=== PATIENT | female | born 1945 | race Caucasian/White ===

== ENCOUNTER 2016-03-29 05:34 | Observation (INO) | payer MEDICARE, OTHER ==
[2016-03-29] VITALS (16 sets, daily range): BP systolic 105–167; BP diastolic 40–70; PULSE 51–76; RESP 16–22; TEMP 97.5–98.4; O2SAT 93–97
[~2016-03-29] VITALS: Ht 172.7 cm; Wt 100.0 kg
[2016-03-29] MEDS ORDERED: SODIUM CHLORIDE 0.9% FLUSH 5 ML FLUSH IVF PRN (06:00)
[2016-03-29] MEDS ORDERED: ONDANSETRON HCL 4 MG/2 ML VIAL IV PUSH ONE ×3 (06:00→09:30)
[2016-03-29] MEDS ORDERED: ASPIRIN 81 MG CHEW TAB PO ONE (06:00)
[2016-03-29] MEDS: NITROGLYCERIN 0.4 MG SL 25 TABS/BTL SL SCH ×3 (06:02→06:15)
--- NOTE | 2016-03-29 06:03 | PD ---
HPI Chief Complaint: chest pain Time Seen by Provider: 05:50 Travel History International Travel<30 days: No Contact w/Intl Traveler<30days: No Traveled to known affect area: No History of Present Illness HPI 70 year-old female presents to the emergency department by private transportation in the care of her spouse for evaluation of chest pain and upper abdominal pain. Patient reports pain at home 8/10 in intensity. Patient reports pain awakened her from sleep at 1 AM. Patient ate dinner around 8 PM and felt well. Spouse has no similar symptoms. Patient has had nausea with vomiting. No hematemesis or coffee-ground emesis. No sweats or shortness of breath. No referred neck jaw back shoulder arm pain. Patient denies history of peptic ulcer disease gastritis or gallbladder disease. No prior history of pancreatitis. Patient denies history of cardiac disease. Patient does have history of hypertension and states that 10 years ago she had she believes a normal cardiac catheterization. Patient denies history of dyslipidemia or diabetes and is not a smoker. Patient states she felt like she was having indigestion and took Pepto-Bismol without relief. Patient has had normal bowel movement and denies diarrhea constipation and has had no previous abdominal surgeries. Due to persistence of symptoms presents now for further evaluation. PFSH Past Medical History Narrative Medical Hypertension, cardiac catheterization, no tobacco use, nursing notes reviewed Social History Tobacco Use: No Allergies-Medications (Allergen,Severity, Reaction): Coded Allergies: Codeine (Verified Allergy, Severe, 06/03/05) Penicillin (Verified Allergy, Severe, 06/03/05) Keflex (Verified Allergy, Intermediate, rash, 03/29/16) Reported Meds & Prescriptions Reported Meds & Active Scripts Active Reported Aspirin 81 Mg Chew 81 Mg CHEW ONCE Fiber (Calcium Polycarbophil) 625 Mg Tab 625 Mg PO PRN Multiple Vitamin 1 Tab 1 Tab PO DAILY Oscal 500/200 D-3 (Calcium Carbonate-Vitamin D) 500-200 Mg-Unit Tab 1 Tab PO BID Clobetasol Emollient Topical 0.05% Cream 1 Applic TOPICAL BID Econazole Topical (Econazole Nitrate) 1% Cream 1 Applic TOPICAL DAILY Levothyroxine (Levothyroxine Sodium) 125 Mcg Tab 125 Mcg PO DAILY Toprol XL (Metoprolol Succinate) 25 Mg Tab 25 Mg PO BID Zetia (Ezetimibe) 10 Mg Tab 10 Mg PO DAILY Losartan (Losartan Potassium) 50 Mg Tab 50 Mg PO DAILY Review of Systems Except as stated in HPI: all other systems reviewed are Neg General / Constitutional: No: Fever, Chills HENT: No: Congestion Cardiovascular: Positive: Chest Pain or Discomfort, No: Palpitations, Diaphoresis Respiratory: No: Shortness of Breath Gastrointestinal: Positive: Nausea, Vomiting, Abdominal Pain, No: Diarrhea Genitourinary: No: Flank Pain Musculoskeletal: No: Myalgias, Arthralgias Skin: No Rash Neurologic: No: Weakness, Dizziness, Syncope Psychiatric: No: Anxiety Hematologic/Lymphatic: No: Lymph Node Enlargement Physical Exam Narrative GENERAL: Well-developed well-nourished female in no acute distress no respiratory distress SKIN: Warm and dry. HEAD: Normocephalic. EYES: No scleral icterus. No injection or drainage. NECK: Supple, trachea midline. No JVD or lymphadenopathy. CARDIOVASCULAR: Regular rate and rhythm without murmurs, gallops, or rubs. RESPIRATORY: Breath sounds equal bilaterally. No accessory muscle use. GASTROINTESTINAL: Abdomen soft, mild reproducible epigastric and right upper quadrant tenderness to palpation without guarding or rebound nondistended. MUSCULOSKELETAL: No cyanosis, or edema. Bilateral radial and dorsalis pedis pulses 2+ to palpation BACK: Nontender without obvious deformity. No CVA tenderness. Data Data Last Documented VS Vital Signs Date Time Temp Pulse Resp B/P Pulse Ox O2 Delivery O2 Flow Rate FiO2 03/29/16 09:15 60 16 117/52 95 Room Air 03/29/16 07:09 97.8 Orders Electrocardiogram (03/29/16 05:50) Basic Metabolic Panel (Bmp) (03/29/16 05:50) Ckmb (Isoenzyme) Profile (03/29/16 05:50) Complete Blood Count With Diff (03/29/16 05:50) Magnesium (Mg) (03/29/16 05:50) Prothrombin Time / Inr (Pt) (03/29/16 05:50) Act Partial Throm Time (Ptt) (03/29/16 05:50) Troponin I (03/29/16 05:50) Chest, Single Ap (03/29/16 05:50) Ecg Monitoring (03/29/16 05:50) Bilateral Bp Monitoring (03/29/16 05:50) Iv Access Insert/Monitor (03/29/16 05:50) Oximetry (03/29/16 05:50) Oxygen Administration (03/29/16 05:50) Aspirin Chew (Aspirin Chew) (03/29/16 06:00) Sodium Chloride 0.9% Flush (Ns Flush) (03/29/16 06:00) Nitroglycerin Sl (Nitrostat Sl) (03/29/16 06:00) Ondansetron Inj (Zofran Inj) (03/29/16 06:00) Sodium Chlor 0.9% 1000 Ml Inj (Ns 1000 M (03/29/16 06:15) Sodium Chlorid 0.9% 500 Ml Inj (Ns 500 M (03/29/16 06:30) Hydromorphone Pf Inj (Dilaudid Pf Inj) (03/29/16 06:30) CKMB (03/29/16 06:04) CKMB% (03/29/16 06:04) Hepatic Functional Panel (03/29/16 06:04) Ondansetron Inj (Zofran Inj) (03/29/16 06:45) Pantoprazole Inj (Protonix Inj) (03/29/16 06:45) Cta Thor Abd Aorta W Iv C W3d (03/29/16 06:42) Iohexol 350 Inj (Omnipaque 350 Inj) (03/29/16 08:05) Admit Order (Ed Use Only) (03/29/16 09:20) Ondansetron Inj (Zofran Inj) (03/29/16 09:30) Hydromorphone Pf Inj (Dilaudid Pf Inj) (03/29/16 09:30) Place In Observation (03/29/16 ) Vital Signs (Adult) Q4H (03/29/16 09:19) Activity Oob With Assistance (03/29/16 09:19) ^ 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 / 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 .CONTINUOUS (03/29/16 09:19) Intake + Output GIN.QSHIFT (03/29/16 09:19) Diet Clear Liquid (03/29/16 Breakfast) Acetaminophen (Tylenol) (03/29/16 09:30) Ondansetron Inj (Zofran Inj) (03/29/16 09:30) Magnesium Hydroxide Liq (Milk Of Magnesi (03/29/16 09:30) Basic Metabolic Panel (Bmp) (03/30/16 06:00) Complete Blood Count With Diff (03/30/16 06:00) Creatine Kinase (Cpk) (03/29/16 12:00) Creatine Kinase (Cpk) (03/29/16 18:00) Troponin I (03/29/16 12:00) Troponin I (03/29/16 18:00) Scd Bilateral/Knee High GIN.BID (03/29/16 09:19) Hernandez Bilateral/Knee High GIN.QSHIFT (03/29/16 09:19) Naloxone Inj (Narcan Inj) (03/29/16 09:30) Labs Laboratory Tests Test 03/29/16 03/29/16 06:04 06:05 White Blood Count 9.8 TH/MM3 Red Blood Count 5.32 MIL/MM3 Hemoglobin 14.9 GM/DL Hematocrit 44.5 % Mean Corpuscular Volume 83.8 FL Mean Corpuscular Hemoglobin 28.1 PG Mean Corpuscular Hemoglobin 33.5 % Concent Red Cell Distribution Width 12.3 % Platelet Count 174 TH/MM3 Mean Platelet Volume 11.0 FL Neutrophils (%) (Auto) 83.1 % Lymphocytes (%) (Auto) 11.6 % Monocytes (%) (Auto) 2.9 % Eosinophils (%) (Auto) 1.7 % Basophils (%) (Auto) 0.7 % Neutrophils # (Auto) 8.1 TH/MM3 Lymphocytes # (Auto) 1.1 TH/MM3 Monocytes # (Auto) 0.3 TH/MM3 Eosinophils # (Auto) 0.2 TH/MM3 Basophils # (Auto) 0.1 TH/MM3 CBC Comment AUTO DIFF Differential Comment AUTO DIFF CONFIRMED Platelet Estimate NORMAL Platelet Morphology Comment NORMAL Red Cell Morphology Comment NORMAL Prothrombin Time 10.5 SEC Prothromb Time International 1.0 RATIO Ratio Activated Partial 25.9 SEC Thromboplast Time Sodium Level 144 MEQ/L Potassium Level 3.8 MEQ/L Chloride Level 108 MEQ/L Carbon Dioxide Level 27.0 MEQ/L Anion Gap 9 MEQ/L Blood Urea Nitrogen 24 MG/DL Creatinine 0.88 MG/DL Estimat Glomerular Filtration 64 ML/MIN Rate Random Glucose 131 MG/DL Calcium Level 8.9 MG/DL Magnesium Level 2.2 MG/DL Total Bilirubin 0.3 MG/DL Direct Bilirubin 0.1 MG/DL Indirect Bilirubin 0.2 MG/DL Aspartate Amino Transf 17 U/L (AST/SGOT) Alanine Aminotransferase 27 U/L (ALT/SGPT) Alkaline Phosphatase 82 U/L Total Creatine Kinase 175 U/L Creatine Kinase MB 1.6 NG/ML Troponin I LESS THAN 0.02 NG/ML Total Protein 6.9 GM/DL Albumin 3.5 GM/DL Lipase 243 U/L MDM Medical Decision Making Medical Screen Exam Complete: Yes Emergency Medical Condition: Yes Medical Record Reviewed: Yes Interpretation(s) EKG sinus bradycardia rate [address] elevation or injury pattern change noted no reciprocal changes no ectopy Differential Diagnosis Chest pain, ACS, myocardial infarction, aortic dissection, peptic ulcer disease , pancreatitis, acute cholecystitis, choledocholithiasis, bowel obstruction, gastroenteritis Narrative Course Patient placed on quality assurance monitor IV access obtained specimens collected and sent for resulting EKG performed which shows sinus bradycardia but no acute ST elevation or injury pattern change patient administered Zofran 4 mg IV along with maintenance fluids normal saline 125 cc per hour aspirin 162 mg by mouth and sublingual nitroglycerin At 6:30 AM after 2 sublingual nitroglycerin pain remains 7/10 in intensity without any change or improvement of symptoms and blood pressure systolic has decreased to 105 mmHg; nausea and vomiting have resolved after Zofran 4 mg IV patient complain use complain of midline epigastric pain care signed over to oncoming ED MD Dr Obando aware CTA pending; may need further GI /GB evaluation Valeria Grimm MD Mar 29, 2016 06:03
[2016-03-29 06:09] LABS: AUTOMATED NEUTROPHIL # 8.1 TH/MM3 (1.8-7.7); BASOPHIL # 0.1 TH/MM3 (0-0.2); BASOPHIL % 0.7 % (0.0-2.0); EOSINOPHIL # 0.2 TH/MM3 (0-0.4); EOSINOPHIL % 1.7 % (0.0-4.0); HEMATOCRIT 44.5 % (35.0-46.0); LYMPH % 11.6 % (9.0-44.0); LYMPHOCYTE # 1.1 TH/MM3 (1.0-4.8); MEAN CELL VOLUME 83.8 FL (80.0-100.0); MEAN CORPUSCULAR HEMOGLOBIN 28.1 PG (27.0-34.0); MEAN CORPUSCULAR HGB CONC 33.5 % (32.0-36.0); MONO % 2.9 % (0.0-8.0); NEUT % 83.1 % (16.0-70.0); PLATELET COUNT 174 TH/MM3 (150-450); RED BLOOD COUNT 5.32 MIL/MM3 (4.00-5.30); RED CELL DISTRIBUTION WIDTH 12.3 % (11.6-17.2); WHITE BLOOD COUNT 9.8 TH/MM3 (4.0-11.0)
[2016-03-29 06:10] LABS: HEMO FLAGS AUTO DIFF
--- NOTE | 2016-03-29 06:19 | RADHPO ---
EXAM DATE/TIME: 03/29/2016 06:06 [facility] COMPARISON: No previous studies available for comparison. INDICATIONS : Chest pain. MEDICAL HISTORY : None. SURGICAL HISTORY : None. ENCOUNTER: Initial ACUITY: 1 day PAIN SCORE: 7/10 LOCATION: Bilateral chest center FINDINGS: A single view of the chest demonstrates the lungs to be symmetrically aerated without evidence of mas s, infiltrate or effusion. The cardiomediastinal contours are unremarkable. Osseous structures are intact. CONCLUSION: Normal examination. Charles Jacob MD on March 29, 2016 at 6:17 Board Certified Radiologist. This report was verified electronically.
[2016-03-29 06:20] LABS: CHLORIDE 108 MEQ/L (98-107); POTASSIUM 3.8 MEQ/L (3.5-5.1); SODIUM (NA) 144 MEQ/L (136-145)
[2016-03-29 06:23] LABS: ANION GAP 9 MEQ/L (5-15); BLOOD UREA NITROGEN 24 MG/DL (7-18); MAGNESIUM 2.2 MG/DL (1.5-2.5); PLATELET ESTIMATE SMEAR NORMAL (NORMAL); PLATELET MORPHOLOGY NORMAL (NORMAL); SCAN/DIFF AUTO DIFF CONFIRMED
[2016-03-29] MEDS: SODIUM CHLOR 0.9% 1000 ML INJ 1,000 ML IV SCH ×3 (06:23→21:21)
[2016-03-29 06:26] LABS: APTT (PATIENT) 25.9 SEC (24.3-30.1); PROTHROMBIN TIME - PATIENT 10.5 SEC (9.8-11.6)
[2016-03-29 06:27] LABS: GLOMERULAR FILTRATION RATE 64 ML/MIN (>89)
[2016-03-29 06:30] LABS: CREATINE KINASE 175 U/L (26-192)
[2016-03-29] MEDS ORDERED: HYDROmorphone HCL PF 1 MG/ML VIAL IV PUSH ONE ×2 (06:30→09:30)
[2016-03-29] MEDS ORDERED: SODIUM CHLORID 0.9% 500 ML INJ 500 ML IV ONE (06:30)
[2016-03-29 06:42] LABS: CKMB 1.6 NG/ML (0.5-3.6)
[2016-03-29] MEDS ORDERED: PANTOPRAZOLE SODIUM 40 MG VIAL IV PUSH ONE (06:45)
[2016-03-29] MEDS ORDERED: ZETI10TA5 PO (06:50)
[2016-03-29] MEDS ORDERED: ASPI81CH CHEW (06:50)
[2016-03-29] MEDS ORDERED: FIBE625T10 PO (06:50)
[2016-03-29] MEDS ORDERED: ECON0.052 TOPICAL (06:50)
[2016-03-29] MEDS ORDERED: TOPR25TA PO (06:50)
[2016-03-29] MEDS ORDERED: OSCA200T PO (06:50)
[2016-03-29] MEDS ORDERED: LOSA50TA PO (06:50)
[2016-03-29] MEDS ORDERED: MULTTAB67 PO (06:50)
[2016-03-29] MEDS ORDERED: LEVO125T4 PO (06:50)
[2016-03-29] MEDS ORDERED: CLOB0.0571 TOPICAL (06:50)
[2016-03-29 06:52] LABS: ALT (GPT) 27 U/L (10-53); AST (GOT) 17 U/L (15-37)
[2016-03-29 06:54] LABS: INDIRECT BILIRUBIN 0.2 MG/DL (0.0-0.8); TOTAL BILIRUBIN ADULT 0.3 MG/DL (0.2-1.0)
[2016-03-29 06:55] LABS: ALKALINE PHOSPHATASE 82 U/L (45-117)
--- NOTE | 2016-03-29 07:39 | PD ---
Physical Exam Date Seen by Provider: Mar 29, 2016 Data Data Last Documented VS Vital Signs Date Time Temp Pulse Resp B/P Pulse Ox O2 Delivery O2 Flow Rate FiO2 03/29/16 08:23 58 16 134/65 95 Room Air 03/29/16 07:09 97.8 Orders Electrocardiogram (03/29/16 05:50) Basic Metabolic Panel (Bmp) (03/29/16 05:50) Ckmb (Isoenzyme) Profile (03/29/16 05:50) Complete Blood Count With Diff (03/29/16 05:50) Magnesium (Mg) (03/29/16 05:50) Prothrombin Time / Inr (Pt) (03/29/16 05:50) Act Partial Throm Time (Ptt) (03/29/16 05:50) Troponin I (03/29/16 05:50) Chest, Single Ap (03/29/16 05:50) Ecg Monitoring (03/29/16 05:50) Bilateral Bp Monitoring (03/29/16 05:50) Iv Access Insert/Monitor (03/29/16 05:50) Oximetry (03/29/16 05:50) Oxygen Administration (03/29/16 05:50) Aspirin Chew (Aspirin Chew) (03/29/16 06:00) Sodium Chloride 0.9% Flush (Ns Flush) (03/29/16 06:00) Nitroglycerin Sl (Nitrostat Sl) (03/29/16 06:00) Ondansetron Inj (Zofran Inj) (03/29/16 06:00) Sodium Chlor 0.9% 1000 Ml Inj (Ns 1000 M (03/29/16 06:15) Sodium Chlorid 0.9% 500 Ml Inj (Ns 500 M (03/29/16 06:30) Hydromorphone Pf Inj (Dilaudid Pf Inj) (03/29/16 06:30) CKMB (03/29/16 06:04) CKMB% (03/29/16 06:04) Hepatic Functional Panel (03/29/16 06:04) Ondansetron Inj (Zofran Inj) (03/29/16 06:45) Pantoprazole Inj (Protonix Inj) (03/29/16 06:45) Cta Thor Abd Aorta W Iv C W3d (03/29/16 06:42) Iohexol 350 Inj (Omnipaque 350 Inj) (03/29/16 08:05) Labs Laboratory Tests Test 03/29/16 06:04 White Blood Count 9.8 TH/MM3 Red Blood Count 5.32 MIL/MM3 Hemoglobin 14.9 GM/DL Hematocrit 44.5 % Mean Corpuscular Volume 83.8 FL Mean Corpuscular Hemoglobin 28.1 PG Mean Corpuscular Hemoglobin 33.5 % Concent Red Cell Distribution Width 12.3 % Platelet Count 174 TH/MM3 Mean Platelet Volume 11.0 FL Neutrophils (%) (Auto) 83.1 % Lymphocytes (%) (Auto) 11.6 % Monocytes (%) (Auto) 2.9 % Eosinophils (%) (Auto) 1.7 % Basophils (%) (Auto) 0.7 % Neutrophils # (Auto) 8.1 TH/MM3 Lymphocytes # (Auto) 1.1 TH/MM3 Monocytes # (Auto) 0.3 TH/MM3 Eosinophils # (Auto) 0.2 TH/MM3 Basophils # (Auto) 0.1 TH/MM3 CBC Comment AUTO DIFF Differential Comment AUTO DIFF CONFIRMED Platelet Estimate NORMAL Platelet Morphology Comment NORMAL Red Cell Morphology Comment NORMAL Prothrombin Time 10.5 SEC Prothromb Time International 1.0 RATIO Ratio Activated Partial 25.9 SEC Thromboplast Time Sodium Level 144 MEQ/L Potassium Level 3.8 MEQ/L Chloride Level 108 MEQ/L Carbon Dioxide Level 27.0 MEQ/L Anion Gap 9 MEQ/L Blood Urea Nitrogen 24 MG/DL Creatinine 0.88 MG/DL Estimat Glomerular Filtration 64 ML/MIN Rate Random Glucose 131 MG/DL Calcium Level 8.9 MG/DL Magnesium Level 2.2 MG/DL Total Bilirubin 0.3 MG/DL Direct Bilirubin 0.1 MG/DL Indirect Bilirubin 0.2 MG/DL Aspartate Amino Transf 17 U/L (AST/SGOT) Alanine Aminotransferase 27 U/L (ALT/SGPT) Alkaline Phosphatase 82 U/L Total Creatine Kinase 175 U/L Creatine Kinase MB 1.6 NG/ML Troponin I LESS THAN 0.02 NG/ML Total Protein 6.9 GM/DL Albumin 3.5 GM/DL [facility] Medical Record Reviewed: Yes Supervised Visit with JESSICA: No Interpretation(s) Vital Signs Date Time Temp Pulse Resp B/P Pulse Ox O2 Delivery O2 Flow Rate FiO2 03/29/16 07:11 65 18 95 Room Air 03/29/16 07:09 97.8 65 18 136/66 95 Room Air 03/29/16 06:39 54 22 119/54 93 Room Air 03/29/16 06:36 51 20 119/54 94 Room Air 03/29/16 06:31 58 20 95 Room Air 03/29/16 06:25 54 20 108/50 95 Room Air 03/29/16 06:22 95 Room Air 03/29/16 06:19 59 20 121/57 95 Room Air 116/55 03/29/16 06:07 57 20 123/60 96 Room Air 03/29/16 06:07 20 03/29/16 06:00 97.5 54 22 167/70 96 Laboratory Tests Test 03/29/16 06:04 White Blood Count 9.8 TH/MM3 (4.0-11.0) Red Blood Count 5.32 MIL/MM3 (4.00-5.30) Hemoglobin 14.9 GM/DL (11.6-15.3) Hematocrit 44.5 % (35.0-46.0) Mean Corpuscular Volume 83.8 FL (80.0-100.0) Mean Corpuscular Hemoglobin 28.1 PG (27.0-34.0) Mean Corpuscular Hemoglobin 33.5 % Concent (32.0-36.0) Red Cell Distribution Width 12.3 % (11.6-17.2) Platelet Count 174 TH/MM3 (150-450) Mean Platelet Volume 11.0 FL (7.0-11.0) Neutrophils (%) (Auto) 83.1 % (16.0-70.0) Lymphocytes (%) (Auto) 11.6 % (9.0-44.0) Monocytes (%) (Auto) 2.9 % (0.0-8.0) Eosinophils (%) (Auto) 1.7 % (0.0-4.0) Basophils (%) (Auto) 0.7 % (0.0-2.0) Neutrophils # (Auto) 8.1 TH/MM3 (1.8-7.7) Lymphocytes # (Auto) 1.1 TH/MM3 (1.0-4.8) Monocytes # (Auto) 0.3 TH/MM3 (0-0.9) Eosinophils # (Auto) 0.2 TH/MM3 (0-0.4) Basophils # (Auto) 0.1 TH/MM3 (0-0.2) CBC Comment AUTO DIFF Differential Comment AUTO DIFF CONFIRMED Platelet Estimate NORMAL (NORMAL) Platelet Morphology Comment NORMAL (NORMAL) Red Cell Morphology Comment NORMAL (NORMAL) Prothrombin Time 10.5 SEC (9.8-11.6) Prothromb Time International 1.0 RATIO Ratio Activated Partial 25.9 SEC Thromboplast Time (24.3-30.1) Sodium Level 144 MEQ/L (136-145) Potassium Level 3.8 MEQ/L (3.5-5.1) Chloride Level 108 MEQ/L (98-107) Carbon Dioxide Level 27.0 MEQ/L (21.0-32.0) Anion Gap 9 MEQ/L (5-15) Blood Urea Nitrogen 24 MG/DL (7-18) Creatinine 0.88 MG/DL (0.50-1.00) Estimat Glomerular Filtration 64 ML/MIN (>89) Rate Random Glucose 131 MG/DL (74-106) Calcium Level 8.9 MG/DL (8.5-10.1) Magnesium Level 2.2 MG/DL (1.5-2.5) Total Bilirubin 0.3 MG/DL (0.2-1.0) Direct Bilirubin 0.1 MG/DL (0.0-0.2) Indirect Bilirubin 0.2 MG/DL (0.0-0.8) Aspartate Amino Transf 17 U/L (15-37) (AST/SGOT) Alanine Aminotransferase 27 U/L (10-53) (ALT/SGPT) Alkaline Phosphatase 82 U/L (45-117) Total Creatine Kinase 175 U/L (26-192) Creatine Kinase MB 1.6 NG/ML (0.5-3.6) Troponin I LESS THAN 0.02 NG/ML (0.02-0.05) Total Protein 6.9 GM/DL (6.4-8.2) Albumin 3.5 GM/DL (3.4-5.0) Last Impressions Chest X-Ray 03/29/16 0550 Signed Impressions: Service Date/Time: Tuesday, March 29, 2016 06:06 - CONCLUSION: Normal examination. Charles Jacob MD Last Impressions Chest X-Ray 03/29/16 0550 Signed Impressions: Service Date/Time: Tuesday, March 29, 2016 06:06 - CONCLUSION: Normal examination. Charles Jacob MD Differential Diagnosis ACS, electrolyte abnormalities, pancreatitis, GERD, gastric ulcer, gastroenteritis, acute cholecystitis, acute appendicitis, pancreatitis, dissection Narrative Course Patient is a 70-year-old female who presents to emergency room with complaints of chest pain and upper abdominal pain. Patient was awakened by her symptoms from sleep this morning, patient arrives emergency room, was placed on a manager motor and had an EKG performed. EKG shows sinus bradycardia at 54 bpm , no acute ST or T-wave changes. Patient was given sublingual nitroglycerin for her chest pain, patient with no relief of symptoms with sublingual nitroglycerin. Patient with continued nausea and vomiting in ER. Patient was given multiple doses of Zofran with little relief of symptoms. CT ordered by Dr. Grimm for further evaluation of symptoms. CTA pending, will continue to treat patient symptomatically. CTA with no evidence of aortic dissection, small hiatal hernia, fat containing a umbilical hernia, liver cysts, lung nodules, adrenal nodules, this is reviewed with patient in detail. A copy of patient's CAT scan report was given to patient as she will need to follow-up with all incidental findings from today. Patient with continued nausea and vomiting and pain, continue IV fluids and antinausea medications. We'll reduce pain medication. Plan to obs for chest pain. Physician Communication Physician Communication case reviewed with Dr. Champion who accepts pt to service Diagnosis Primary Impression: Chest pain Qualified Code: R07.9 - Chest pain, unspecified type Additional Impressions: Hiatal hernia Umbilical hernia Liver cyst Lung nodule, multiple Adrenal nodule Intractable nausea and vomiting Admitting Information Admitting Physician Requests: Dana Rivas DO Mar 29, 2016 07:39
[2016-03-29] MEDS ORDERED: IOHEXOL 350 MG/ML 10 ML VIAL (for RAD DIAG) IV ONE (08:05)
--- NOTE | 2016-03-29 08:57 | RADHPO ---
EXAM DATE/TIME: 03/29/2016 07:42 [facility] COMPARISON: CHEST SINGLE AP, March 29, 2016, 6:06. INDICATIONS : Anterior chest pain for four hours. Evaluate for dissection. IV CONTRAST: 100 cc Omnipaque 350 (iohexol) IV RADIATION DOSE: 20.88 CTDIvol (mGy) MEDICAL HISTORY : Hypertension. SURGICAL HISTORY : None. ENCOUNTER: Initial ACUITY: 1 day PAIN SCALE: 5/10 LOCATION: anterior chest TECHNIQUE: Volumetric scanning was performed using a multi-row detector CT scanner. The data was post processed with a variety of visualization algorithms including full volume maximum intensity projection, multi -planar sliding thin slab reformation, curved planar reformation, and surface rendering techniques. Using automated exposure control and adjustment of the mA and/or kV according to patient size, radiat ion dose was kept as low as reasonably achievable to obtain optimal diagnostic quality images. FINDINGS: LUNGS: There is a noncalcified nodule in the left lower lobe measuring 1.3 cm. There is a noncalcified nodul e in the left posterior costophrenic angle measuring 5.4 mm. There is a noncalcified nodule in the ri ght posterior costophrenic angle measuring 3.7 mm in right upper lobe nodule suspected measures 6.6 m m on image 60. Groundglass right upper lobe nodule measuring 3.6 mm on image 46. MEDIASTINUM: No abnormally enlarged lymph nodes by CT criteria. No axillary or hilar abnormalities are identified. Small hiatal hernia. ABDOMEN: Left adrenal mass measuring 2 x 1.5 cm is noted. Right adrenal gland, bilateral kidneys, spleen, panc reas are normal. Gallbladder unremarkable. There are numerous hypodense masses present within the mamie er the largest in the right lobe inferiorly measuring 4.1 cm. Largest in the left lobe measures 2.6 c m. PELVIS: No evidence of free fluid or pelvic mass. No abnormally enlarged inguinal or retroperitoneal lymph no ascencion are present. The bladder is unremarkable. L4 and L5 sclerotic foci as well as T2 sclerotic focus. THORACIC AORTA: The thoracic aortic root is normal with normal branching of the great vessels. There is no evidence of aneurysm or dissection. ABDOMINAL AORTA: The aorta is normal in caliber without aneurysm or dissection. The renal arteries are patent bilater ally. The proximal celiac and superior mesenteric arteries are patent and normal in diameter. PELVIC VESSELS: The internal iliac and external iliac vessels are patent without aneurysm or stenosis. CONCLUSION: 1. No evidence for aortic dissection. 2. Small hiatal hernia. 3. Fat-containing umbilical hernia. 4. 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 5. Lung nodules are present including a 1.3 cm left lower lobe mass. Left adrenal nodule is noted as well. The possibility of metastatic disease of unknown primary should be considered. Kehinde Pinto MD on March 29, 2016 at 8:47 Board Certified Radiologist. This report was verified electronically.
[2016-03-29] MEDS ORDERED: MAGNESIUM HYDROXIDE SUSP 30 ML CUP PO PRN (09:30)
[2016-03-29] MEDS ORDERED: NALOXONE HCL 0.4 MG/ML AMP IV PRN ×2 (09:30→12:30)
[2016-03-29] MEDS ORDERED: ACETAMINOPHEN 325 MG TAB PO PRN (09:30)
[2016-03-29] MEDS ORDERED: ONDANSETRON HCL 4 MG/2 ML VIAL IVP PRN (09:30)
[2016-03-29] MEDS ORDERED: traMADol HCL 50 MG TAB PO PRN (12:30)
[2016-03-29 12:32] LABS: CREATINE KINASE 59 U/L (26-192)
--- NOTE | 2016-03-29 13:31 | EKG ---
Date Performed: 03/29/2016 Time Performed: 05:35:58 PTAGE: 70 years EKG: Sinus bradycardia. Since PREVIOUS TRACING , no significant change noted Normal ECG except for rate PREVIOUS TRACIN 06/03/2005 12.50 DOCTOR: Diamond Valle Interpretating Date/Time 03/29/2016 13:28:49
--- NOTE | 2016-03-29 15:12 | HHI.HP ---
cc: Scottie Cain MD [facility]ician Scottie Cain MD Admission Diagnosis chest pain/abdominal pain/n/v Diagnoses: (1) Chest pain Diagnosis: Principal (2) Abdominal pain Diagnosis: Principal (3) Nausea & vomiting Diagnosis: Principal Chief Complaint: abdominal and chest pain Travel History International Travel<30 Days: No Contact w/Intl Traveler <30 Da: No Traveled to Known Affected Are: No History of Present Illness 70-year-old female with history of hypertension, hyperlipidemia, thyroid disease, arthritis presents with complaint of abdominal and chest pain. Patient states at 1 AM she started to experience a "terrible pain" pointing to the epigastric region stating it was "intense" and it radiated up and across to the left. She states she thought it was gas and started walking around the house and started expelling gas. She then states she took Pepto-Bismol and started to vomit. She had a BM, but still had no relief. She states the pain then started to move upward indicating substernally. States she woke up her at 5 AM and decided to come to the ED. States the pain was constant. She states she had 4 episodes of emesis in the ED prior to receiving pain medication. She received 2 doses of Dilaudid. She states she now has a "feeling" behind the sternum but it is not a pain. Denies any fevers, chills, or night sweats. Denies numbness, tingling, or radiation of pain to the arms/ neck/jaws/back. Denies any hematemesis, coffee-ground emesis, hematochezia, or melena. Denies any cough or shortness of breath. The nurse had called earlier and states the patient had emesis after Dilaudid use. Morphine was offered, but per RN the patient declined stating she did not want something that strong although the nurse indicated that she had received Dilaudid which is stronger. She has an adverse reaction to hydrocodone as well as codeine. Review of Systems Other ROS 10 negative unless otherwise indicated in HPI. Past Family Social History Past Medical History Hypertension Hyperlipidemia Thyroid disease Groin rash Arthritis Past Surgical History Pelvic surgery to repair cystocele and rectocele with bladder sling ~2008 Hysterectomy 1993 Ruptured appendix 1964 2 arthroscopic knee surgeries. Reported Medications Aspirin 81 Mg Chew 81 Mg CHEW ONCE Fiber (Calcium Polycarbophil) 625 Mg Tab 625 Mg PO PRN Multiple Vitamin 1 Tab 1 Tab PO DAILY Oscal 500/200 D-3 (Calcium Carbonate-Vitamin D) 500-200 Mg-Unit Tab 1 Tab PO BID Clobetasol Emollient Topical 0.05% Cream 1 Applic TOPICAL BID Econazole Topical (Econazole Nitrate) 1% Cream 1 Applic TOPICAL DAILY Levothyroxine (Levothyroxine Sodium) 125 Mcg Tab 125 Mcg PO DAILY Toprol XL (Metoprolol Succinate) 25 Mg Tab 25 Mg PO BID Zetia (Ezetimibe) 10 Mg Tab 10 Mg PO DAILY Losartan (Losartan Potassium) 50 Mg Tab 50 Mg PO DAILY Allergies: Coded Allergies: Codeine (Verified Allergy, Severe, 06/03/05) Penicillin (Verified Allergy, Severe, 06/03/05) Keflex (Verified Allergy, Intermediate, rash, 03/29/16) Family History Mother: Heart valve replacement, cancer of the carotid? Father: of leukemia at age 78 Social History Patient states she smoked cigarettes in college 50 years ago. Denies alcohol use. Denies illicit drug use. Physical Exam Vital Signs Vital Signs Date Time Temp Pulse Resp B/P Pulse Ox O2 Delivery O2 Flow Rate FiO2 03/29/16 14:58 61 16 95 Room Air 03/29/16 14:21 76 16 105/40 94 Room Air 03/29/16 13:20 66 16 124/57 95 Room Air 03/29/16 12:45 60 16 95 Room Air 03/29/16 11:21 16 03/29/16 11:15 98.3 60 16 137/65 94 Room Air 03/29/16 10:15 62 16 117/51 97 Room Air 03/29/16 09:15 60 16 117/52 95 Room Air 03/29/16 08:23 58 16 134/65 95 Room Air 03/29/16 08:21 13 03/29/16 07:11 65 18 95 Room Air 03/29/16 07:09 97.8 65 18 136/66 95 Room Air 03/29/16 06:39 54 22 119/54 93 Room Air 03/29/16 06:36 51 20 119/54 94 Room Air 03/29/16 06:31 58 20 95 Room Air 03/29/16 06:25 54 20 108/50 95 Room Air 03/29/16 06:22 95 Room Air 03/29/16 06:19 59 20 121/57 95 Room Air 116/55 03/29/16 06:07 57 20 123/60 96 Room Air 03/29/16 06:07 20 03/29/16 06:00 97.5 54 22 167/70 96 Physical Exam GENERAL: This is a well-nourished, well-developed patient, in no apparent distress. SKIN: No rashes, ecchymoses or lesions. Cool and dry. HEAD: Atraumatic. Normocephalic. EYES: No scleral icterus. No injection or drainage. ENT: MMM. Airway patent. NECK: Trachea midline. CARDIOVASCULAR: Regular rate and rhythm. RESPIRATORY: Clear to auscultation. Breath sounds equal bilaterally. No wheezes , rales, or rhonchi. GASTROINTESTINAL: Abdomen soft, non-tender, nondistended. MUSCULOSKELETAL: Trace lower extremity edema. NEUROLOGICAL: Awake and alert. Motor and sensory grossly within normal limits. Normal speech. Laboratory Laboratory Tests Test 03/29/16 03/29/16 06:04 12:00 White Blood Count 9.8 Red Blood Count 5.32 Hemoglobin 14.9 Hematocrit 44.5 Mean Corpuscular Volume 83.8 Mean Corpuscular Hemoglobin 28.1 Mean Corpuscular Hemoglobin 33.5 Concent Red Cell Distribution Width 12.3 Platelet Count 174 Mean Platelet Volume 11.0 Neutrophils (%) (Auto) 83.1 Lymphocytes (%) (Auto) 11.6 Monocytes (%) (Auto) 2.9 Eosinophils (%) (Auto) 1.7 Basophils (%) (Auto) 0.7 Neutrophils # (Auto) 8.1 Lymphocytes # (Auto) 1.1 Monocytes # (Auto) 0.3 Eosinophils # (Auto) 0.2 Basophils # (Auto) 0.1 CBC Comment AUTO DIFF Differential Comment AUTO DIFF CONFIRMED Platelet Estimate NORMAL Platelet Morphology Comment NORMAL Red Cell Morphology Comment NORMAL Prothrombin Time 10.5 Prothromb Time International 1.0 Ratio Activated Partial 25.9 Thromboplast Time Sodium Level 144 Potassium Level 3.8 Chloride Level 108 Carbon Dioxide Level 27.0 Anion Gap 9 Blood Urea Nitrogen 24 Creatinine 0.88 Estimat Glomerular Filtration 64 Rate Random Glucose 131 Calcium Level 8.9 Magnesium Level 2.2 Total Bilirubin 0.3 Direct Bilirubin 0.1 Indirect Bilirubin 0.2 Aspartate Amino Transf 17 (AST/SGOT) Alanine Aminotransferase 27 (ALT/SGPT) Alkaline Phosphatase 82 Total Creatine Kinase 175 59 Creatine Kinase MB 1.6 Troponin I LESS THAN 0.02 LESS THAN 0.02 Total Protein 6.9 Albumin 3.5 Result Diagram: 03/29/16 0604 03/29/16603 Imaging Last Impressions Aorta CTA 03/29/1642 Signed Impressions: Service Date/Time: Tuesday, March 29, 2016 07:42 - CONCLUSION: 1. No evidence for aortic dissection. 2. Small hiatal hernia. 3. Fat-containing umbilical hernia. 4. 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 5. Lung nodules are present including a 1.3 cm left lower lobe mass. Left adrenal nodule is noted as well. The possibility of metastatic disease of unknown primary should be considered. Kehinde Pinto MD Chest X-Ray 03/29/16 0550 Signed Impressions: Service Date/Time: Tuesday, March 29, 2016 06:06 - CONCLUSION: Normal examination. Charles Jacob MD Assessment and Plan Assessment and Plan 70-year-old female with: Chest pain: Atypical; started as a gas type pain in the abdomen radiating up the sternum constant for hours. EKG #1 personally interpreted without evidence of ischemia. Troponin 2 less than 0.02. Pain improved but still has a "feeling" behind the sternum. Patient had a catheterization on 06/04/[address] Hercules which only showed mild disease of the proximal part of the circumflex. Patient received 162 mg aspirin and 2 doses of nitroglycerin in the ED. -Serial EKGs and cardiac enzymes -81 mg daily aspirin -Nitro/Ultram prn chest pain -Unlikely to be of cardiac origin. No stress test will be ordered at this time. Abdominal pain/vomiting: Patient experienced gas-like pain earlier this morning which radiated up to the chest. States she did have flatulence. She admits to having multiple episodes of emesis when she arrived to the ED, but the patient appears well currently. No pain on exam. CTA of the chest and abdomen is without dissection. White blood cell count normal. LFTs normal. Afebrile. May have gastroenteritis. -Lipase ordered -IVF -Zofran prn nausea -Ultram prn pain as patient cannot tolerate other narcotics; no longer vomiting. -Clear liquid diet Lung mass and nodule/adrenal mass/liver masses: See CTA. There are multiple nodules throughout the lungs. There is a 2 x1.5 cm adrenal mass and there are numerous hypodense masses present within the liver. Radiologist indicates possibility of metastatic disease of unknown primary. -Patient was informed of nodules. -Can f/u outpatient basis as not related to her complaints. Chronic medical problems include hypertension and thyroid disease: -Continue metoprolol and losartan, but hold if hypotensive. -Continue Levothyroxine DVT prevention: TEDs/SCDs. Written by Marcie Lerner PA-C acting as scribe for Dr. Champion on 03/29/16 at ~ 1500. The documentation accurately reflects the work and decisions performed face-to- face by dc Dr. Champion on 03/29/16 at ~1500. Discussed Condition With patient, ED physician Problem Qualifiers (1) Chest pain: Qualified Code: R07.9 - Chest pain, unspecified type Marcie Lerner Mar 29, 2016 15:12 Jerald Champion MD Mar 29, 2016 16:24
[2016-03-29 20:47] LABS: CREATINE KINASE 61 U/L (26-192)
[2016-03-29] MEDS ORDERED: LOSARTAN 50 MG TAB PO SCH (21:00)
[2016-03-29] MEDS: METOPROLOL SUCCINATE 25 MG EXTENDED RELEASE TAB PO SCH (21:14)
[2016-03-30 00:27] VITALS: BP 115/53; PULSE 56; RESP 20; TEMP 97.6; O2SAT 96
[2016-03-30 04:36] VITALS: PULSE 55
[2016-03-30 04:38] VITALS: BP 115/57; PULSE 54; RESP 20; TEMP 97.4; O2SAT 93
[2016-03-30 05:21] LABS: AUTOMATED NEUTROPHIL # 5.3 TH/MM3 (1.8-7.7); BASOPHIL % 0.4 % (0.0-2.0); EOSINOPHIL # 0.1 TH/MM3 (0-0.4); EOSINOPHIL % 1.4 % (0.0-4.0); HEMATOCRIT 38.6 % (35.0-46.0); HEMO FLAGS DIFF FINAL; LYMPH % 22.1 % (9.0-44.0); LYMPHOCYTE # 1.7 TH/MM3 (1.0-4.8); MEAN CELL VOLUME 84.9 FL (80.0-100.0); MEAN CORPUSCULAR HEMOGLOBIN 28.6 PG (27.0-34.0); MEAN CORPUSCULAR HGB CONC 33.7 % (32.0-36.0); MONO % 8.6 % (0.0-8.0); NEUT % 67.5 % (16.0-70.0); PLATELET COUNT 150 TH/MM3 (150-450); RED BLOOD COUNT 4.54 MIL/MM3 (4.00-5.30); RED CELL DISTRIBUTION WIDTH 13.1 % (11.6-17.2); WHITE BLOOD COUNT 7.8 TH/MM3 (4.0-11.0)
[2016-03-30 05:31] LABS: BICARBONATE 25.9 MEQ/L (21.0-32.0); POTASSIUM 3.7 MEQ/L (3.5-5.1)
[2016-03-30] MEDS ORDERED: LEVOTHYROXINE SODIUM 125 MCG TAB PO SCH (06:00)
[2016-03-30] MEDS: SODIUM CHLOR 0.9% 1000 ML INJ 1,000 ML IV SCH (06:06)
[2016-03-30 07:40] VITALS: BP 129/59; PULSE 60; RESP 18; TEMP 97.4; O2SAT 95
[2016-03-30] MEDS: METOPROLOL SUCCINATE 25 MG EXTENDED RELEASE TAB PO SCH (08:03)
--- NOTE | 2016-03-30 08:32 | HHI.PR ---
Subjective Remarks Follow-up for epigastric pain and gastritis. The patient feels well today. She denies any further abdominal pain, chest pain, or nausea. Has not required anything for pain overnight. She does complain of some torso soreness from retching yesterday. She has been tolerating clear liquids with no difficulties. Her PCP is Dr. Cain and she is asking to follow up with him as opposed to any further inpatient testing such as stress testing or EGD. She does not smoke. No regular NSAID use. Objective Vitals Vital Signs Date Time Temp Pulse Resp B/P Pulse Ox O2 Delivery O2 Flow Rate FiO2 03/30/16 07:40 97.4 60 18 129/59 95 03/30/16 04:38 97.4 54 20 115/57 93 03/30/16 04:36 55 03/30/16 00:27 97.6 56 20 115/53 96 03/29/16 19:50 98.3 67 20 132/60 96 03/29/16 17:35 98.4 65 18 122/64 97 03/29/16 17:13 98.0 70 16 115/53 96 Room Air 03/29/16 14:58 61 16 95 Room Air 03/29/16 14:21 76 16 105/40 94 Room Air 03/29/16 13:20 66 16 124/57 95 Room Air 03/29/16 12:45 60 16 95 Room Air 03/29/16 11:21 16 03/29/16 11:15 98.3 60 16 137/65 94 Room Air 03/29/16 10:15 62 16 117/51 97 Room Air 03/29/16 09:15 60 16 117/52 95 Room Air I/O 03/29/16 03/29/16 03/29/16 03/30/16 03/30/16 03/30/16 06:59 14:59 22:59 06:59 14:59 22:59 Intake Total 1450 ml 553 ml Output Total 325 ml Balance -325 ml 1450 ml 553 ml Intake Oral 450 ml IV Total 1000 ml 553 ml Output Emesis 325 ml # Voids 3 1 3 Result Diagram: 03/30/16 0435 03/30/16 0435 Imaging Last Impressions Aorta CTA 03/29/16 0642 Signed Impressions: Service Date/Time: Tuesday, March 29, 2016 07:42 - CONCLUSION: 1. No evidence for aortic dissection. 2. Small hiatal hernia. 3. Fat-containing umbilical hernia. 4. 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 5. Lung nodules are present including a 1.3 cm left lower lobe mass. Left adrenal nodule is noted as well. The possibility of metastatic disease of unknown primary should be considered. Kehinde Pinto MD Chest X-Ray 03/29/16 0550 Signed Impressions: Service Date/Time: Tuesday, March 29, 2016 06:06 - CONCLUSION: Normal examination. Charles Jacob MD Objective Remarks GENERAL: Well-developed well-nourished. In no acute distress. SKIN: Warm and dry. No lesions noted. HEENT: Normocephalic. Pupils equal and round. Mucous membranes pink and moist. CARDIOVASCULAR: Regular rate and rhythm. No murmur appreciated. RESPIRATORY: No accessory muscle use. Clear to auscultation. Breath sounds equal bilaterally. GASTROINTESTINAL: Abdomen soft, non-tender, nondistended. Bowel sounds x4. MUSCULOSKELETAL: No obvious deformities. No clubbing or cyanosis. No edema. NEUROLOGICAL: Awake and alert. No focal neurological deficits. Moves upper and lower extremities spontaneously. Normal speech. PSYCHIATRIC: Appropriate mood and affect; insight and judgment normal. A/P Problem List: (1) Chest pain ICD Code: R07.9 Status: Resolved (2) Abdominal pain ICD Code: R10.9 Status: Resolved (3) Nausea & vomiting ICD Code: R11.2 Status: Resolved Assessment and Plan 70-year-old female with: Chest pain: Atypical; started as a gas type pain in the abdomen radiating up the sternum constant for hours. EKGs reviewed, no acute changes or significant change from previous. Troponin 3 less than 0.02. Patient had a catheterization on 06/04/[address] Hercules which only showed mild disease of the proximal part of the circumflex. Seems more GI related by history. ACS ruled out per protocol. - started on 81 mg daily aspirin Abdominal pain/vomiting: Resolved Patient experienced gas-like pain which radiated up to the chest associated with multiple episodes of emesis, no diarrhea. No pain on exam. CTA of the chest and abdomen is without dissection. White blood cell count normal. LFTs normal. Afebrile. Lipase within normal limits. May have gastroenteritis vs mild gastritis. -Tolerating clears, DC IVF -Zofran prn nausea -Ultram prn pain as patient cannot tolerate other narcotics; no longer vomiting. -Advance diet -Start ppi -May benefit from outpatient GI follow-up Lung mass and nodule/adrenal mass/liver masses: See CTA. There are multiple nodules throughout the lungs. There is a 2 x1.5 cm adrenal mass and there are numerous hypodense masses present within the liver. Radiologist indicates possibility of metastatic disease of unknown primary. -F/U outpatient basis as not related to her complaints. Chronic medical problems include hypertension and thyroid disease: -Continue metoprolol and losartan, but hold if hypotensive. -Continue Levothyroxine DVT prevention: TEDs/SCDs. Discharge Planning DC home later today if tolerating full diet. Discussed with Dr. Avendaño. Discharge patient to home Condition on discharge: Improved Heart healthy Diet as tolerated Regular activity Rx written: Aspirin, Protonix Follow-up with primary care physician Attending Statement The exam, history, and the medical decision-making described in the above note were completed with the assistance of the mid-level provider. I reviewed and agree with the findings presented. I attest that I had a [id number] encounter with the patient on the same day, and personally performed and documented my assessment and findings in the medical record.patient says she feels well. Chest pain resolved. Will need to obtain workup for left lower lobe pulmonary mass, followup with primary care Problem Qualifiers (1) Chest pain: Qualified Code: R07.9 - Chest pain, unspecified type (2) Abdominal pain: Qualified Code: R10.13 - Epigastric pain (3) Nausea & vomiting: Jose Roque Mar 30, 2016 08:32 Jagdeep Avendaño MD Apr 01, 2016 02:58
[2016-03-30] MEDS ORDERED: LOSARTAN 50 MG TAB PO SCH (09:00)
[2016-03-30] MEDS ORDERED: ASPIRIN EC 81 MG TABEC PO SCH (09:00)
[2016-03-30] MEDS ORDERED: MULTIVITAMIN TAB PO SCH (09:00)
[2016-03-30] MEDS ORDERED: EZETIMIBE 10 MG TAB PO SCH (09:00)
[2016-03-30] MEDS ORDERED: PANTOPRAZOLE SOD 40 MG DELAYED RELEASE TAB PO SCH (09:00)
[2016-03-30] MEDS ORDERED: ASPI81TA11 PO (09:14)
[2016-03-30] MEDS ORDERED: PANT40TA3 PO (09:14)
--- NOTE | 2016-03-30 18:17 | EKG ---
Date Performed: 03/29/2016 Time Performed: 12:46:36 PTAGE: 70 years EKG: Sinus rhythm . Since previous tracing, no significant change noted Normal ECG PREVIOUS TRACING : 03/29/2016 05.35 DOCTOR: Ashely Hubbard Interpretating Date/Time 03/30/2016 18:17:26
--- NOTE | 2016-03-30 18:18 | EKG ---
Date Performed: 03/29/2016 Time Performed: 18:20:15 PTAGE: 70 years EKG: Sinus rhythm Since previous tracing, no significant change noted NORMAL ECG PREVIOUS TRACING : 03/29/2016 12.46 DOCTOR: Ashely Hubbard Interpretating Date/Time 03/30/2016 18:17:37
--- NOTE | 2016-04-01 02:57 | HHI.DS ---
cc: Scottie Cain MD Discharge Summary Admission Date Mar 29, 2016 at 09:22 Discharge Date: Mar 30, 2016 Admitting Diagnosis chest pain/abdominal pain/n/v (1) Chest pain ICD Code: R07.9 (2) Abdominal pain ICD Code: R10.9 (3) Nausea & vomiting ICD Code: R11.2 Procedures no invasive procedures performed. Brief History - From Admission 70-year-old female with history of hypertension, hyperlipidemia, thyroid disease, arthritis presents with complaint of abdominal and chest pain. Patient states at 1 AM she started to experience a "terrible pain" pointing to the epigastric region stating it was "intense" and it radiated up and across to the left. She states she thought it was gas and started walking around the house and started expelling gas. She then states she took Pepto-Bismol and started to vomit. She had a BM, but still had no relief. She states the pain then started to move upward indicating substernally. States she woke up her at 5 AM and decided to come to the ED. States the pain was constant. She states she had 4 episodes of emesis in the ED prior to receiving pain medication. She received 2 doses of Dilaudid. She states she now has a "feeling" behind the sternum but it is not a pain. Denies any fevers, chills, or night sweats. Denies numbness, tingling, or radiation of pain to the arms/ neck/jaws/back. Denies any hematemesis, coffee-ground emesis, hematochezia, or melena. Denies any cough or shortness of breath. The nurse had called earlier and states the patient had emesis after Dilaudid use. Morphine was offered, but per RN the patient declined stating she did not want something that strong although the nurse indicated that she had received Dilaudid which is stronger. She has an adverse reaction to hydrocodone as well as codeine. CBC/BMP: 03/30/16 0435 03/30/16 0435 Significant Findings Laboratory Tests Test 03/29/16 03/29/16 03/29/16 03/30/16 06:04 12:00 18:45 04:35 Red Blood Count 5.32 MIL/MM3 (4.00-5.30) Neutrophils (%) (Auto) 83.1 % (16.0-70.0) Neutrophils # (Auto) 8.1 TH/MM3 (1.8-7.7) Chloride Level 108 MEQ/L 112 MEQ/L (98-107) (98-107) Blood Urea Nitrogen 24 MG/DL (7-18) Estimat Glomerular Filtration 64 ML/MIN (>89) Rate Random Glucose 131 MG/DL (74-106) Troponin I LESS THAN 0.02 LESS THAN 0.02 LESS THAN 0.02 NG/ML NG/ML NG/ML (0.02-0.05) (0.02-0.05) (0.02-0.05) Mean Platelet Volume 11.1 FL (7.0-11.0) Monocytes (%) (Auto) 8.6 % (0.0-8.0) Calcium Level 8.3 MG/DL (8.5-10.1) Imaging Last Impressions Aorta CTA 03/29/16 0642 Signed Impressions: Service Date/Time: Tuesday, March 29, 2016 07:42 - CONCLUSION: 1. No evidence for aortic dissection. 2. Small hiatal hernia. 3. Fat-containing umbilical hernia. 4. 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 5. Lung nodules are present including a 1.3 cm left lower lobe mass. Left adrenal nodule is noted as well. The possibility of metastatic disease of unknown primary should be considered. Kehinde Pinto MD Chest X-Ray 03/29/16 0550 Signed Impressions: Service Date/Time: Tuesday, March 29, 2016 06:06 - CONCLUSION: Normal examination. Charles Jacob MD PE at Discharge GENERAL: Well-developed well-nourished. In no acute distress. SKIN: Warm and dry. No lesions noted. HEENT: Normocephalic. Pupils equal and round. Mucous membranes pink and moist. CARDIOVASCULAR: Regular rate and rhythm. No murmur appreciated. RESPIRATORY: No accessory muscle use. Clear to auscultation. Breath sounds equal bilaterally. GASTROINTESTINAL: Abdomen soft, non-tender, nondistended. Bowel sounds x4. MUSCULOSKELETAL: No obvious deformities. No clubbing or cyanosis. No edema. NEUROLOGICAL: Awake and alert. No focal neurological deficits. Moves upper and lower extremities spontaneously. Normal speech. PSYCHIATRIC: Appropriate mood and affect; insight and judgment normal. Hospital Course patient's pain improved with supportive treatment. Chest pain was ruled out with troponins and EKG as per protocol. Symptoms spontaneously resolved.new medications aspirin and Protonix. CT angiogram performed and negative for dissection, however does show 1.3 cm left lower lobe mass, with possibility of metastatic disease. Please see imaging above. Patient will need workup for this as outpatient. Pt Condition on Discharge: Stable Discharge Disposition: Discharge Home Discharge Time: <= 30 minutes Discharge Instructions DIET: Follow Instructions for: Heart Healthy Diet Activities you can perform: Regular-No Restrictions Follow up Referrals: PCP Follow-up - 1 Week with Scottie Cain MD New Medications: Aspirin DR (Aspirin EC) 81 Mg Tabdr 81 MG PO DAILY Blood Clot Prevention #30 TAB Pantoprazole (Pantoprazole) 40 Mg Tab 40 MG PO DAILY Reflux #30 TAB Continued Medications: Calcium Carbonate-Vitamin D (Oscal 500/200 D-3) 500-200 Mg-Unit Tab 1 TAB PO BID Calcium Supplement Ref 0 TAB Calcium Polycarbophil (Fiber) 625 Mg Tab 625 MG PO PRN CONSTIPATION Ref 0 TAB Clobetasol Emollient Topical (Clobetasol Emollient Topical) 0.05% Cream 1 APPLIC TOPICAL BID #15 Ref 0 GM Econazole Topical (Econazole Topical) 1% Cream 1 APPLIC TOPICAL DAILY Fungal Infection #1 Ref 0 TUBE Ezetimibe (Zetia) 10 Mg Tab 10 MG PO DAILY #30 Ref 0 TAB Levothyroxine (Levothyroxine) 125 Mcg Tab 125 MCG PO DAILY Thyroid #30 Ref 0 TAB Losartan (Losartan) 50 Mg Tab 50 MG PO DAILY Blood Pressure Management #30 Ref 0 TAB Metoprolol Succinate ER 24 HR (Toprol XL) 25 Mg Tab 25 MG PO BID #30 Ref 0 TAB Multiple Vitamin (Multiple Vitamin) 1 Tab 1 TAB PO DAILY Nutritional Supplement Ref 0 TAB Discontinued Medications: Aspirin (Aspirin) 81 Mg Chew 81 MG CHEW ONCE #1 Ref 0 TAB Jagdeep Avendaño MD Apr 01, 2016 02:57
== END 2016-03-30 12:50 | disposition home or self-care (01) ==
LOC: PHED 05:34 → PHEDA 09:22 → NEPHCDU 17:26
PROVIDERS: ADMIT Internal Medicine; ATTEND Internal Medicine
DX: R07.89 Other chest pain (principal); R10.13 Epigastric pain; R11.2 Nausea with vomiting, unspecified; I10 Essential (primary) hypertension; R00.1 Bradycardia, unspecified; K44.9 Diaphragmatic hernia without obstruction or gangrene; K42.9 Umbilical hernia without obstruction or gangrene; K76.89 Other specified diseases of liver; R91.8 Other nonspecific abnormal finding of lung field; E78.5 Hyperlipidemia, unspecified; E07.9 Disorder of thyroid, unspecified
CPT/HCPCS: 71010; 71275; 74174; 80048; 80076; 82550; 82552; 83690; 83735; 84484; 85025; 85610; 85730; 93005; 96361; 96374; 96375; 96376; 99285; C9113; G0378; J1170; J2405; J7030; J7040; Q9967